=== PATIENT | male | born 1950 | race Caucasian/White ===

== ENCOUNTER 2022-05-13 09:51 | Outpatient (CLI) | payer MEDICARE, BC | END 2022-05-13 09:52 | disposition home or self-care (01) | LOC: CSHLAB 09:51 | PROVIDERS: ATTEND Specialist | DX: Z20.822 Contact with and (suspected) exposure to COVID-19 (principal) | CPT/HCPCS: 87811 ==

== ENCOUNTER 2022-05-17 09:17 | Day surgery (SDC) | payer MEDICARE, BC ==
[2022-05-17] MEDS ORDERED: Aspirin 325 MG TAB ONE (09:48)
[2022-05-17 09:55] LABS: INR-International Normal Ratio 0.9; Prothrombin Time 10.2 sec (9.5-12.1)
[2022-05-17 09:58] LABS: Anion Gap 11 mmol/L (10-20); BUN (Urea Nitrogen) 8 mg/dL (8.4-25.7); Calc. Creatinine Clearance 0 mL/min (70-130); Calcium 9.8 mg/dL (7.8-10.44); Carbon Dioxide 30 mmol/L (23-31); Chloride 102 mmol/L (98-107); Estimated GFR 96; Glucose 119 mg/dL (80-115); Potassium 4.5 mmol/L (3.5-5.1); Sodium 138 mmol/L (136-145)
[2022-05-17 10:02] LABS: #Eosinphils 0.2 10x3/uL (0.0-0.5); #Monocytes 0.4 10x3/uL (0.0-1.1); #Neutrophils 3.1 10x3/uL (1.5-8.4); %Basophils 0.6 % (0.0-2.0); %Lymphocytes 19.7 % (18.0-47.0); %Monocytes 8.4 % (0.0-10.0); %Neutrophils 65.9 % (40.0-75.0); Hemoglobin 15.3 g/dL (13.5-17.5); Mean Corpuscular HGB CONC 34.9 g/dL (32.0-36.0); Mean Corpuscular Hemoglobin 33.3 pg (27.0-33.0); Mean Corpuscular Volume 95.6 fl (81.2-95.1); Mean Platelet Volume 8.9 fl (7.4-10.4); Platelet Count 227 10x3/uL (150-450); RBC Distribution Width 12.4 % (11.5-14.5); Red Blood Cell (RBC) Count 4.59 10x6/uL (4.32-5.72); White Blood Cell (WBC) Count 4.8 10x3/uL (3.5-10.5)
[2022-05-17] MEDS ORDERED: Lidocaine 1% 20 ML MDV ONE (10:03)
[2022-05-17] MEDS ORDERED: Adenosine 6 MG/2 ML VIAL ONE (10:04)
[2022-05-17] MEDS ORDERED: Nitroglycerin 50 MG/250 ML BOT 0 ML ONE (10:04)
[2022-05-17] MEDS ORDERED: Heparin 10,000 UNITS/ 10 ML VIAL ONE (10:04)
[2022-05-17] MEDS ORDERED: Sodium Chloride 0.9% 1,000 ML ONE (10:05)
[2022-05-17 10:17] VITALS: BP 141/83; TEMP 97.5
[2022-05-17] MEDS ORDERED: Fentanyl 100 MCG/2 ML VIAL ONE (11:03)
[2022-05-17] MEDS ORDERED: Midazolam HCl 2 mg/2 ml Vial ONE (11:03)
[2022-05-17] MEDS ORDERED: Iopamidol 300 61% 100 ML VIAL FS ONE (15:53)
== END 2022-05-17 15:54 | disposition home or self-care (01) ==
LOC: CSHSDC 09:17
PROVIDERS: ATTEND Specialist
PROC: 4A023N7 Measurement of Cardiac Sampling and Pressure, Left Heart, Percutaneous Approach (ICD-10-PCS; principal; 2022-05-17)
PROC: B201YZZ Plain Radiography of Multiple Coronary Arteries using Other Contrast (ICD-10-PCS; 2022-05-17)
DX: I25.118 Atherosclerotic heart disease of native coronary artery with other forms of angina pectoris (principal); I25.82 Chronic total occlusion of coronary artery; R94.39 Abnormal result of other cardiovascular function study; I11.0 Hypertensive heart disease with heart failure; I50.42 Chronic combined systolic (congestive) and diastolic (congestive) heart failure; E78.2 Mixed hyperlipidemia; I48.0 Paroxysmal atrial fibrillation; Z20.822 Contact with and (suspected) exposure to COVID-19
CPT/HCPCS: 80048; 85025; 85610; 93005; 93459; C1769; 93010; 99152; J0153; J1644; J2250; J3010; J7050; Q9967